=== PATIENT | male | born 1955 | race Native Hawaiian/Other Pacific Islander ===

== ENCOUNTER 2020-04-13 18:23 | Emergency (ER) | payer OTHER ==
[~2020-04-13] VITALS: Ht 170.2 cm; Wt 71.7 kg
[2020-04-13 20:24] VITALS: BP 126/48; TEMP 98
== END 2020-04-13 20:24 | disposition home or self-care (01) ==
LOC: ED 18:23
PROC: 2W3DX1Z Immobilization of Left Lower Arm using Splint (ICD-10-PCS; principal; 2020-04-13)
DX: S01.81XA Laceration without foreign body of other part of head, initial encounter (principal); S62.512A Displaced fracture of proximal phalanx of left thumb, initial encounter for closed fracture; S61.012A Laceration without foreign body of left thumb without damage to nail, initial encounter; W01.198A Fall on same level from slipping, tripping and stumbling with subsequent striking against other object, initial encounter; Y92.098 Other place in other non-institutional residence as the place of occurrence of the external cause
CPT/HCPCS: 96372; 99283; J1885

== ENCOUNTER 2020-04-15 14:46 | Emergency (ER) | payer OTHER ==
[~2020-04-15] VITALS: Ht 170.2 cm; Wt 71.7 kg
[2020-04-15 16:55] VITALS: BP 118/61; TEMP 97.8
== END 2020-04-15 16:55 | disposition home or self-care (01) ==
LOC: ED 14:46
DX: S33.5XXA Sprain of ligaments of lumbar spine, initial encounter (principal); W18.39XA Other fall on same level, initial encounter; Y92.098 Other place in other non-institutional residence as the place of occurrence of the external cause
CPT/HCPCS: 96374; 99283; 99284; J1885